=== PATIENT | female | born 1940 | race Caucasian/White ===

== ENCOUNTER 2022-04-06 10:47 | Emergency (ER) | payer MEDICARE, BC ==
[2022-04-06] MEDS ORDERED: Sodium Chloride 0.9% 10 ML Syringe FLUSH PRN (11:19)
[2022-04-06] MEDS ORDERED: Ondansetron 4 MG/2 ML SDV IVPUSH PRN (11:20)
[2022-04-06] MEDS ORDERED: HYDROmorphone 0.5 MG/0.5 ML Syringe IVPUSH PRN (11:20)
[2022-04-06 12:10] LABS: ANION GAP 10.2 meq/L (7-15)
== END 2022-04-06 13:45 | disposition home or self-care (01) ==
LOC: LL.ED 10:47
DX: M25.551 Pain in right hip (principal); M25.552 Pain in left hip; Z88.8 Allergy status to other drugs, medicaments and biological substances; Z91.048 Other nonmedicinal substance allergy status; Z79.899 Other long term (current) drug therapy
CPT/HCPCS: 36415; 80053; 81003; 83605; 85025; 96374; 96375; 99283; 99284-25; J1170; J2405; J3490

== ENCOUNTER 2023-01-16 09:46 | Emergency (ER) | payer MEDICARE, BC ==
[2023-01-16] MEDS ORDERED: Sodium Chloride 0.9% 10 ML Syringe FLUSH PRN (09:53)
[2023-01-16 10:09] LABS: BASOPHILS ABSOLUTE AUTO 0.07 K/uL (0.00-0.20); BASOPHILS PERCENT AUTO 0.7 % (0.0-2.0); EOSINOPHILS ABSOLUTE AUTO 0.17 K/uL (0.00-0.50); EOSINOPHILS PERCENT AUTO 1.6 % (0.0-5.0); HEMATOCRIT 40.2 % (34.0-46.0); HEMOGLOBIN 13.2 g/dL (11.7-15.5); LYMPHOCYTES ABSOLUTE AUTO 2.12 K/uL (0.50-3.50); LYMPHOCYTES PERCENT AUTO 19.7 % (10.0-50.0); MEAN CORPUSCULAR HEMOGLOBIN 29.9 pg (28.2-33.3); MEAN CORPUSCULAR HGB CONC 32.8 g/dL (31.7-36.0); MONOCYTES ABSOLUTE AUTO 0.65 K/uL (0.00-1.00); MONOCYTES PERCENT AUTO 6.1 % (2.0-14.0); NEUTROPHILS ABSOLUTE AUTO 7.73 K/uL (1.40-7.00); NEUTROPHILS PERCENT AUTO 71.9 % (45.0-80.0); PLATELET COUNT,PLT 300 K/uL (150-350); RED BLOOD CELL COUNT 4.42 M/uL (3.77-5.09); WHITE BLOOD CELL COUNT,WBC 10.7 K/uL (4.0-10.2)
[2023-01-16 10:23] LABS: PROTHROMBIN TIME 10.2 SEC (9.0-11.1)
[2023-01-16 10:34] LABS: ALBUMIN 3.7 g/dL (3.4-5.0); ANION GAP 10.8 meq/L (7-15); BILIRUBIN TOTAL 0.7 mg/dL (0.2-1.0); CALCIUM 9.6 mg/dL (8.5-10.1); CARBON DIOXIDE,CO2 27.2 mmol/L (21.0-32.0); CREATININE 1.1 mg/dL (0.51-1.17); EST CRCL DRUG DOSING (CG) 29.75 mL/min; MAGNESIUM 1.8 mg/dL (1.8-2.4); POTASSIUM,K 4.3 mmol/L (3.5-5.1); PROTEIN TOTAL,TP 7.7 g/dL (6.4-8.2)
[2023-01-16 10:50] LABS: CORONAVIRUS COVID-19 NAA NEGATIVE (NEGATIVE); INFLUENZA A NAA NEGATIVE (NEGATIVE); INFLUENZA B NAA NEGATIVE (NEGATIVE); RESPIRATORY SYNCYTIAL VIR NAA NEGATIVE (NEGATIVE)
== END 2023-01-16 11:40 | disposition home or self-care (01) ==
LOC: LL.ED 09:46
DX: R07.89 Other chest pain (principal); I10 Essential (primary) hypertension; E78.00 Pure hypercholesterolemia, unspecified; I25.10 Atherosclerotic heart disease of native coronary artery without angina pectoris; K21.9 Gastro-esophageal reflux disease without esophagitis; E11.9 Type 2 diabetes mellitus without complications; E05.90 Thyrotoxicosis, unspecified without thyrotoxic crisis or storm; Z90.49 Acquired absence of other specified parts of digestive tract; Z79.82 Long term (current) use of aspirin; Z79.899 Other long term (current) drug therapy; Z88.8 Allergy status to other drugs, medicaments and biological substances; Z91.048 Other nonmedicinal substance allergy status; Z20.822 Contact with and (suspected) exposure to COVID-19
CPT/HCPCS: 0241U; 36415; 71045; 80053; 83735; 83880; 84484; 85025; 85610; 93005; 93010; 99284; 99285